=== PATIENT | female | born 1965 | race Caucasian/White ===

== ENCOUNTER 2023-01-14 09:09 | Emergency (ER) | payer OTHER ==
[2023-01-14 09:26] VITALS: BP 130/70; PULSE 87; RESP 18; TEMP 98; BMI 31.7
== END 2023-01-14 11:40 | disposition home or self-care (01) ==
LOC: JER 09:09
DX: R05.9 Cough, unspecified (principal); R09.81 Nasal congestion; R09.3 Abnormal sputum; J40 Bronchitis, not specified as acute or chronic; J06.9 Acute upper respiratory infection, unspecified; Z20.822 Contact with and (suspected) exposure to COVID-19
CPT/HCPCS: 0241U-QW; 71046-TC-FY; 99284-25

== ENCOUNTER 2023-05-26 14:32 | Emergency (ER) | payer OTHER ==
[2023-05-26 14:45] VITALS: BP 107/59; PULSE 83; RESP 18; TEMP 98.2; BMI 34.9
== END 2023-05-26 17:31 | disposition home or self-care (01) ==
LOC: JERFT 14:32 → JER 14:32 → JERFT 17:31
DX: M25.561 Pain in right knee (principal); G89.29 Other chronic pain
CPT/HCPCS: 99283-25